=== PATIENT | male | born 1995 | race Caucasian/White ===

== ENCOUNTER 2023-11-25 20:07 | Emergency (ER) | payer SELFPAY ==
[2023-11-25 20:11] VITALS: BP 116/80
[2023-11-25 20:20] VITALS: BMI 25.1
[2023-11-25 21:00] VITALS: BP 118/60
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
[2023-11-25] MEDS: TYLENOL 650 MG PO (21:07)
== END 2023-11-25 21:00 | disposition home or self-care (01) ==
LOC: EMR 20:07
PROVIDERS: EMERGENCY PHYSICIAN Emergency Medicine; FAMILY PHYSICIAN Internal Medicine
DX: S16.1XXA Strain of muscle, fascia and tendon at neck level, initial encounter (principal); V43.52XA Car driver injured in collision with other type car in traffic accident, initial encounter
CPT/HCPCS: 99282